=== PATIENT | female | born 2000 | race Caucasian/White ===

== ENCOUNTER 2020-05-28 21:02 | Outpatient (CLI) | payer MEDICAID ==
[~2020-05-28] VITALS: Ht 162.6 cm; Wt 65.0 kg
[2020-05-28 21:53] LABS: MICROSCOPIC INDICATED
== END 2020-05-28 22:40 | disposition home or self-care (01) ==
LOC: LDOP 21:02
PROVIDERS: ATTEND Obstetrics & Gynecology
DX: O26.852 Spotting complicating pregnancy, second trimester (principal); Z3A.25 25 weeks gestation of pregnancy
CPT/HCPCS: 59025; 81001; 87086; 99201; G0463

== ENCOUNTER 2020-09-03 03:32 | Outpatient (CLI) | payer MEDICAID ==
[~2020-09-03] VITALS: Ht 165.1 cm; Wt 89.1 kg
[2020-09-03 04:08] VITALS: BP 123/70
[2020-09-04] MEDS ORDERED: PREN1TAB10 PO (11:05)
== END 2020-09-03 04:41 | disposition home or self-care (01) ==
LOC: LDOP 03:32
PROVIDERS: ATTEND Obstetrics & Gynecology
DX: O42.92 Full-term premature rupture of membranes, unspecified as to length of time between rupture and onset of labor (principal); Z3A.39 39 weeks gestation of pregnancy
CPT/HCPCS: 59025; 84112

== ENCOUNTER 2020-09-03 20:05 | Outpatient (CLI) | payer MEDICAID ==
[2020-09-04] MEDS ORDERED: PREN1TAB10 PO (11:05)
== END 2020-09-03 21:17 | disposition home or self-care (01) ==
LOC: LDOP 20:05
PROVIDERS: ATTEND Obstetrics & Gynecology
DX: O26.893 Other specified pregnancy related conditions, third trimester (principal); R10.9 Unspecified abdominal pain; Z3A.39 39 weeks gestation of pregnancy
CPT/HCPCS: 59025

== ENCOUNTER 2020-09-04 10:13 | Inpatient (IN) | payer MEDICAID ==
[~2020-09-04] VITALS: Ht 165.1 cm; Wt 89.0 kg
[2020-09-04] MEDS ORDERED: NEWBORN KIT ONE (10:34)
[2020-09-04] MEDS ORDERED: LIDOCAINE 1%, 20ML ONE (10:34)
[2020-09-04] MEDS ORDERED: OXYTOCIN 30U/ 0.9% NaCL 500ML 500 ML ONE (10:34)
[2020-09-04] MEDS ORDERED: MISOPROSTOL 200 MCG TABLET ONE (10:34)
[2020-09-04] MEDS: LACTATED RINGERS 1,000 ML IV SCH ×3 (10:47→14:00)
[2020-09-04] MEDS ORDERED: TERBUTALINE 1 MG/ML, 1ML SQ PRN (11:00)
[2020-09-04] MEDS ORDERED: ALUMINUM/MAG/SIMETHICONE 30 ML UDC PO PRN (11:00)
[2020-09-04] MEDS ORDERED: ONDANSETRON 2MG/ML, 2ML IVPush PRN (11:00)
[2020-09-04] MEDS ORDERED: TERBUTALINE 1 MG/ML, 1ML IVPush PRN (11:00)
[2020-09-04] MEDS ORDERED: OXYTOCIN 30U/ 0.9% NaCL 500ML 500 ML IV ONE (11:00)
[2020-09-04] MEDS ORDERED: FENTANYL PF 100 MCG/2ML IV PRN (11:00)
[2020-09-04] MEDS ORDERED: D5%-LACTATED RINGERS 1,000 ML IV SCH (11:00)
[2020-09-04 11:02] LABS: BASOPHILS % (AUTO) 0 % (0-1); EOSINOPHILS % (AUTO) 0 % (1-7); LYMPHOCYTES % (AUTO) 10 % (22-44); MEAN CORPUSCULAR HEMOGLOBIN 29.9 pg (27.0-34.8); MEAN CORPUSCULAR HGB CONC 34.2 g/dL (32.4-35.8); MEAN PLATELET VOLUME 9.6 fL (7.4-10.4); MONOCYTES % (AUTO) 4 % (2-9); NEUTROPHILS % (AUTO) 85 % (42-75); PLATELET COUNT 245 x10^3/uL (130-400); RED CELL DISTRIBUTION WIDTH 13.6 % (9.6-15.2)
[2020-09-04 11:04] LABS: MD NO
[2020-09-04] MEDS ORDERED: PREN1TAB10 PO (11:05)
[2020-09-04 11:15] VITALS: BP 127/76
[2020-09-04] MEDS ORDERED: FENTANYL/BUPIV./NS/PF 250 ML EPIDCONT ONE (11:43)
[2020-09-04] MEDS ORDERED: FENTANYL/BUPIV./NS/PF 250 ML EPIDCONT SCH (12:30)
[2020-09-04] MEDS ORDERED: EPHEDRINE 50 MG/ML, 1ML IVPush PRN (12:30)
[2020-09-04] MEDS ORDERED: NALOXONE 0.4 MG/ML, 1ML IVPush PRN (12:30)
[2020-09-04] MEDS ORDERED: LACTATED RINGERS 1,000 ML IVBOLUS PRN (12:30)
[2020-09-04] MEDS ORDERED: LACTATED RINGERS 1,000 ML IV SCH (12:30)
[2020-09-04] MEDS ORDERED: OXYTOCIN 30U/ 0.9% NaCL 500ML 500 ML IV PRN (15:00)
[2020-09-04] MEDS ORDERED: CALCIUM CARBONATE 500 MG TAB.CHEW PO PRN (20:30)
[2020-09-04] MEDS ORDERED: OXYTOCIN 10 UNITS/ML, 1ML IM PRN (20:30)
[2020-09-04] MEDS ORDERED: ONDANSETRON 2MG/ML, 2ML IV PRN (20:30)
[2020-09-04] MEDS ORDERED: SIMETHICONE 80 MG CHEW TAB PO PRN (20:30)
[2020-09-04] MEDS ORDERED: OXYcodone/APAP 5/325MG TABLET PO PRN ×2 (20:30)
[2020-09-04] MEDS: OXYTOCIN 30U/ 0.9% NaCL 500ML 500 ML IV SCH (20:30)
[2020-09-04] MEDS ORDERED: METHYLERGONOVINE 0.2 MG/ML IM PRN (20:30)
[2020-09-04] MEDS ORDERED: DOCUSATE 100 MG CAPSULE PO PRN (20:30)
[2020-09-04] MEDS ORDERED: TRANEXAMIC ACID 1,000 MG in SODIUM CHLORIDE 0.9% 100 ML IVPB ONE (20:30)
[2020-09-04] MEDS ORDERED: MISOPROSTOL 200 MCG TABLET PR PRN (20:30)
[2020-09-04 22:30] VITALS: BP 125/72
[2020-09-04] MEDS: IBUPROFEN 600 MG TABLET PO PRN (22:52)
[2020-09-05 02:35] VITALS: BP 117/73
[2020-09-05 05:52] LABS: BASOPHILS % (AUTO) 1 % (0-1); EOSINOPHILS % (AUTO) 0 % (1-7); LYMPHOCYTES % (AUTO) 10 % (22-44); MEAN CORPUSCULAR HEMOGLOBIN 30.2 pg (27.0-34.8); MEAN CORPUSCULAR HGB CONC 34.5 g/dL (32.4-35.8); MEAN PLATELET VOLUME 9.7 fL (7.4-10.4); MONOCYTES % (AUTO) 4 % (2-9); NEUTROPHILS % (AUTO) 85 % (42-75); PLATELET COUNT 246 x10^3/uL (130-400); RED BLOOD COUNT 4.07 x10^6/uL (3.82-5.3); RED CELL DISTRIBUTION WIDTH 13.9 % (9.6-15.2)
[2020-09-05 06:00] VITALS: BP 101/65
[2020-09-05 06:21] LABS: MD SCAN
[2020-09-05] MEDS: OXYTOCIN 30U/ 0.9% NaCL 500ML 500 ML IV SCH (06:30)
[2020-09-05 08:45] VITALS: BP 106/71
[2020-09-05] MEDS: IBUPROFEN 600 MG TABLET PO PRN ×2 (08:50→17:11)
[2020-09-05] MEDS ORDERED: PRENATAL VIT/IRON/FA 1 EACH TABLET PO SCH (09:00)
[2020-09-05 12:23] VITALS: BP 107/67
[2020-09-05] MEDS ORDERED: IBUP-1222 PO (13:25)
[2020-09-05 17:00] VITALS: BP 108/72
[2020-09-05 21:00] VITALS: BP 119/78
== END 2020-09-05 21:00 | disposition home or self-care (01) | DRG 807 ==
LOC: LDOP 10:13 → LDIP 10:38 → 2NW 22:00
PROVIDERS: ADMIT Obstetrics & Gynecology; ATTEND Obstetrics & Gynecology
PROC: 10E0XZZ Delivery of Products of Conception, External Approach (ICD-10-PCS; principal; 2020-09-04)
PROC: 0KQM0ZZ Repair Perineum Muscle, Open Approach (ICD-10-PCS; 2020-09-04)
PROC: 10907ZC Drainage of Amniotic Fluid, Therapeutic from Products of Conception, Via Natural or Artificial Opening (ICD-10-PCS; 2020-09-04)
PROC: 3E0R3BZ Introduction of Anesthetic Agent into Spinal Canal, Percutaneous Approach (ICD-10-PCS; 2020-09-04)
PROC: 00HU33Z Insertion of Infusion Device into Spinal Canal, Percutaneous Approach (ICD-10-PCS; 2020-09-04)
DX: O77.0 Labor and delivery complicated by meconium in amniotic fluid (principal); Z37.0 Single live birth; Z20.822 Contact with and (suspected) exposure to COVID-19; O70.1 Second degree perineal laceration during delivery; Z3A.40 40 weeks gestation of pregnancy
CPT/HCPCS: 36415; 85025; 86592; 86850; 86900; 87635; G0378; J2590; J7120

== ENCOUNTER 2020-10-07 20:55 | Emergency (ER) | payer MEDICAID ==
[~2020-10-07] VITALS: Ht 165.1 cm; Wt 80.6 kg
[~2020-10-07 20:55] MED LIST: IBUP-1222 PO; PREN1TAB10 PO
[2020-10-07 20:56] VITALS: BP 123/62
== END 2020-10-07 22:19 | disposition home or self-care (01) ==
LOC: ED 22:13
DX: N61.0 Mastitis without abscess (principal)
CPT/HCPCS: 99283